=== PATIENT | female | born 1955 | race Caucasian/White ===

== ENCOUNTER 2016-10-15 13:02 | Emergency (ER) | payer MEDICAID ==
[2016-10-15 13:13] VITALS: RESP 15; TEMP 97.9
[2016-10-15] MEDS ORDERED: Oxycodone/Acetaminophen 5/325 mg Tab PO STA (13:43)
--- NOTE | 2016-10-15 13:44 | ED PDOC ---
Arrival/HPI - General Chief Complaint: Lower Extremity Problem/Injury Time Seen by Provider: 10/15/16 13:41 Historian: Patient - History of Present Illness Narrative History of Present Illness (Text): 10/15/16 13:41 61 y/o female, pmh including htn/hyperlipidemia/dm, nkda, c/o bilateral lower extremity leg swelling and rt. knee pain x 3 days. Pt. stated that she has chronic lower leg swelling bilaterally, scheduled for the bilateral lower venuous doppler but has not, started to have rt. knee pain for the past 2-3 days , no fall or trauma, no chest pain or shortness of breath, no night sweat, no dizziness, no other medical or psychological complaints. Past Medical History - Provider Review Nursing Documentation Reviewed: Yes - Cardiac Hx Cardiac Disorders: Yes Hx Hypertension: Yes - Pulmonary Hx Respiratory Disorders: No - Neurological Hx Neurological Disorder: No - HEENT Hx HEENT Disorder: No - Renal Hx Renal Disorder: No - Endocrine/Metabolic Hx Endocrine Disorders: Yes Hx Diabetes Mellitus Type 2: Yes - Hematological/Oncological Hx Blood Disorders: No - Integumentary Hx Dermatological Disorder: No - Musculoskeletal/Rheumatological Hx Musculoskeletal Disorders: Yes Hx Back Pain: Yes - Gastrointestinal Hx Gastrointestinal Disorders: Yes Hx Gastroesophageal Reflux: Yes - Genitourinary/Gynecological Hx Genitourinary Disorders: No - Psychiatric Hx Psychophysiologic Disorder: No Hx Substance Use: No Family/Social History - Physician Review Nursing Documentation Reviewed: Yes Family/Social History: Unknown Family HX Smoking Status: Unknown If Ever Smoked Hx Alcohol Use: No Hx Substance Use: No Allergies/Home Meds Allergies/Adverse Reactions: Allergies No Known Allergies Allergy (Verified 10/15/16 13:14) Home Medications: Home Meds Medication Instructions Recorded Confirmed Allopurinol [Zyloprim] 300 mg PO DAILY 10/15/16 10/15/16 Aspirin [Aspirin Chewable] 81 mg PO DAILY 10/15/16 10/15/16 Atorvastatin [Lipitor] 40 mg PO DAILY 10/15/16 10/15/16 Diclofenac Sodium [Voltaren] 1 appful TOP QID 10/15/16 10/15/16 Docusate [Colace] 100 mg PO DAILY 10/15/16 10/15/16 Insulin Glargine,Hum.rec.anlog 25 units SC DAILY 10/15/16 10/15/16 [Lantus Solostar] Insulin Lispro [humALOG] 0 units SQ AC 10/15/16 10/15/16 Lisinopril/Hydrochlorothiazide 1 tab PO DAILY 10/15/16 10/15/16 [Lisinopril-Hctz 20-25 mg Tab] Metoprolol Succinate XL [Toprol XL] 50 mg PO DAILY 10/15/16 10/15/16 Mv,Min10/Folic Acid/D3/Ala/Lut 1 tab PO DAILY 10/15/16 10/15/16 [Strovite One Caplet] Omeprazole [Omeprazole] 20 mg PO DAILY 10/15/16 10/15/16 Review of Systems - Review of Systems Constitutional: absent: Fatigue, Fevers Eyes: absent: Vision Changes ENT: absent: Hearing Changes Respiratory: absent: SOB, Cough Cardiovascular: Edema. absent: Chest Pain Gastrointestinal: absent: Abdominal Pain, Nausea, Vomiting Musculoskeletal: Arthralgias. absent: Myalgias Skin: absent: Rash, Pruritis Physical Exam Vital Signs Reviewed: Yes Vital Signs Temp Pulse Resp BP Pulse Ox 10/15/16 13:12 97.9 F 71 15 114/67 100 Temperature: Afebrile Blood Pressure: Normal Pulse: Regular Respiratory Rate: Normal Appearance: Positive for: Well-Appearing, Non-Toxic Pain Distress: Moderate Mental Status: Positive for: Alert and Oriented X 3 - Systems Exam Head: Present: Atraumatic, Normocephalic Pupils: Present: PERRL Extroacular Muscles: Present: EOMI Conjunctiva: Present: Normal Mouth: Present: Moist Mucous Membranes Neck: Present: Normal Range of Motion Respiratory/Chest: Present: Clear to Auscultation, Good Air Exchange. No: Respiratory Distress, Accessory Muscle Use Cardiovascular: Present: Regular Rate and Rhythm, Normal S1, S2, Other (1+ pedal edema bilatearally). No: Murmurs Abdomen: Present: Normal Bowel Sounds. No: Tenderness, Distention, Peritoneal Signs Back: Present: Normal Inspection Upper Extremity: Present: Normal Inspection. No: Cyanosis, Edema Lower Extremity: Present: Normal Inspection, Other (Rt. knee: mild swelling with +ttp on the medial aspect of the rt. knee, negative belinda and chester signs, FROM without limitation, sensation intact, motor 5/5, +DPPT pulses, capillary refill< 2 seconds, neurovascular intact. ). No: Edema Neurological: Present: GCS=15, Speech Normal, Motor Func Grossly Intact, Gait Normal, Memory Normal Skin: Present: Warm, Dry, Normal Color. No: Rashes Psychiatric: Present: Alert, Oriented x 3, Normal Insight, Normal Concentration Medical Decision Making ED Course and Treatment: 10/15/16 13:48 -labs -venuous doppler -rt. knee xray -observe and reassess 10/15/16 15:35 -Labs are non-significant except BUN 22/hgb 10.2, IVF ordered. -Bilateral venuous doppler: as per preliminary, no acute DVT -Knee xrays: joint space narrowing on medial compartment -Bilateral lower extremities venuous doppler: as per preliminary report, no acute dvt. -Pain decreased, will discharge home -Discharge home with mobic, michael wrap, ice compression, follow up with your own pmd and orthopedic within 2 days, return to the ER for any new or worsening signs or symptom - Lab Interpretations Lab Results: 10/15/16 14:01 10/15/16 14:01 Lab Results 10/15/16 14:01: Sodium 138, Potassium 4.3, Chloride 102, Carbon Dioxide 27, Anion Gap 13, BUN 22 H, Creatinine 1.0, Est GFR ( Amer) > 60, Est GFR ( Non-Af Amer) 56, Random Glucose 134 H, Calcium 9.3, Total Bilirubin 0.4, AST 26 , ALT 34, Alkaline Phosphatase 97, NT-Pro-B Natriuret Pep 118, Total Protein 7.5 , Albumin 3.9, Globulin 3.5, Albumin/Globulin Ratio 1.1 10/15/16 14:01: WBC 9.1, RBC 3.82, Hgb 10.2 L, Hct 32.0 L, MCV 83.8, MCH 26.7, MCHC 31.9, RDW 15.4 H, Plt Count 303, MPV 8.8, Gran % 56.9, Lymph % (Auto) 34.4 , Sierra % (Auto) 6.5 H, Eos % (Auto) 2.0, Baso % (Auto) 0.2, Gran # 5.19, Lymph # 3.1, Sierra # 0.6, Eos # 0.2, Baso # 0.02 I have reviewed the lab results: Yes Interpretation: Abnormal lab values (hgb 10.2) - RAD Interpretation Radiology Orders: 10/15/16 13:43 KNEE W PATELLA RIGHT 3 VIEW [RAD] Stat DUPLEX LOWER EXTRM VEIN BILAT [US] Stat Knee xrays: joint space narrowing on medial compartment Bilateral lower extremities venuous doppler: as per preliminary report, no acute dvt. 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 Disposition/Present on Arrival - Present on Arrival Any Indicators Present on Arrival: No History of DVT/PE: No History of Uncontrolled Diabetes: No Urinary Catheter: No History of Decub. Ulcer: No History Surgical Site Infection Following: None - Disposition Have Diagnosis and Disposition been Completed?: Yes Diagnosis: Edema, Osteoarthritis Disposition: HOME/ ROUTINE Disposition Time: 14:39 Patient Plan: Discharge Condition: IMPROVED Additional Instructions: -Discharge home with mobic, michael wrap, stocking, ice compression, follow up with your own pmd and orthopedic within 2 days, return to the ER for any new or worsening signs or symptom Prescriptions: Compression Socks, Medium [Futuro Restoring] 1 each MC DAILY #1 each Meloxicam [Mobic] 15 mg PO DAILY PRN #10 tab PRN Reason: Other Referrals: Amber Peñaloza MD [Primary Care Provider] - Follow up with primary Sima Mcduffie MD [Staff Provider] - Follow up with primary Forms: [employer] [facility] [employer])
[2016-10-15 14:06] LABS: BASO # 0.02 K/mm3 (0.0-2.0); BASO % 0.2 % (0.0-3.0); EOS # 0.2 (0.0-0.7); GRAN # 5.19 (1.4-6.5); GRAN % 56.9 % (50.0-68.0); HEMOGLOBIN 10.2 g/dL (12.0-16.0); LYMPH # 3.1 (1.2-3.4); LYMPH % 34.4 % (22.0-35.0); MEAN CELL VOLUME 83.8 fl (80.0-105.0); MEAN CORPUSCULAR HEMOGLOBIN 26.7 pg (25.0-35.0); MEAN CORPUSCULAR HGB CONC 31.9 g/dl (31.0-37.0); MEAN PLATELET VOLUME 8.8 fl (7.0-11.0); MONO # 0.6 (0.1-0.6); MONO % 6.5 % (1.0-6.0); PLATELET COUNT 303 10^3/uL (120.0-450.0); RBC 3.82 10^6/uL (3.5-6.1); RED CELL DISTRIBUTION WIDTH 15.4 % (11.5-14.5); WHITE BLOOD COUNT 9.1 10^3/ul (4.5-11.0)
[2016-10-15 14:20] LABS: ALB/GLOB RATIO 1.1 (1.1-1.8); ALBUMIN 3.9 g/dL (3.0-4.8); ALT/SGPT 34 U/L (7-56); AST/SGOT 26 U/L (15-39); BLOOD UREA NITROGEN 22 mg/dL (7-21); CALCIUM 9.3 mg/dL (8.4-10.5); GFR AFRICAN-AMERICAN > 60; GFR NON-AFRICAN AMERICAN 56
[2016-10-15 14:29] LABS: B-TYPE NATRIURETIC PEPTIDE 118 pg/mL (0-450)
[2016-10-15] MEDS ORDERED: Sodium Chloride 0.9% 1,000 ML IV SCH (14:45)
--- NOTE | 2016-10-15 14:58 | US ---
HISTORY: Leg pain and swelling. Evaluate for DVT PHYSICIAN(S): Lalo John MD. TECHNIQUE: Duplex sonography and color-flow Doppler with graded compression were used to evaluate the deep venous systems of both lower extremities. FINDINGS: The visualized deep venous systems of both lower extremities are sonographically normal and compressible. Normal wave forms and augmentation are seen. There is no sonographic evidence for deep venous thrombosis in the visualized segments of both lower extremities. IMPRESSION: No sonographic evidence for deep venous thrombosis in the visualized segments of both lower extremities.
--- NOTE | 2016-10-15 15:15 | RAD ---
PROCEDURE: Right Knee Radiographs. HISTORY: rt. knee pain COMPARISON: None. FINDINGS: BONES: Normal. No fracture. JOINTS: There is mild joint space narrowing in the medial compartment JOINT EFFUSION: None. OTHER FINDINGS: None. IMPRESSION: There is mild joint space narrowing in the medial compartment
[2016-10-15 15:51] VITALS: BP 111/67; PULSE 68; O2SAT 97
== END 2016-10-15 16:00 | disposition home or self-care (01) ==
LOC: ED 13:02 → MERGE 13:02 → ED 16:00
DX: R60.9 Edema, unspecified (principal); M17.0 Bilateral primary osteoarthritis of knee; I10 Essential (primary) hypertension; E11.9 Type 2 diabetes mellitus without complications
CPT/HCPCS: 73562; 80053; 83880; 85025; 93970; 96360; 99284; J7040

== ENCOUNTER 2017-06-02 15:57 | Emergency (ER) | payer MEDICAID ==
[2017-06-02 15:57] VITALS: BMI 37.0
--- NOTE | 2017-06-02 17:11 | ED PDOC ---
Arrival/HPI - General Time Seen by Provider: 06/02/17 17:10 Historian: Patient - History of Present Illness Narrative History of Present Illness (Text): 06/02/17 17:10 61 y/o female, pmh including htn/hyperlipidemia/dm, gout, nkda, presents to this ED c/o right knee pain since yesterday. Patient denies trauma, fall, weakness, paresthesias, dizziness, sob, cp, palpitation, fever, skin rash, or SOUTH. Time/Duration: Other (since yesterday) Quality: Aching Context: Home Past Medical History - Provider Review Nursing Documentation Reviewed: Yes - Infectious Disease Hx of Infectious Diseases: None - Cardiac Hx Cardiac Disorders: Yes Hx Hypertension: Yes - Pulmonary Hx Respiratory Disorders: No - Neurological Hx Neurological Disorder: No - HEENT Hx HEENT Disorder: No - Renal Hx Renal Disorder: No - Endocrine/Metabolic Hx Endocrine Disorders: Yes Hx Diabetes Mellitus Type 2: Yes - Hematological/Oncological Hx Blood Disorders: No - Integumentary Hx Dermatological Disorder: No - Musculoskeletal/Rheumatological Hx Musculoskeletal Disorders: Yes Hx Back Pain: Yes - Gastrointestinal Hx Gastrointestinal Disorders: Yes Hx Gastroesophageal Reflux: Yes - Genitourinary/Gynecological Hx Genitourinary Disorders: No - Psychiatric Hx Psychophysiologic Disorder: No Hx Substance Use: No - Surgical History Hx Section: Yes - Anesthesia Hx Anesthesia: Yes Hx Anesthesia Reactions: No - Suicidal Assessment Feels Threatened In Home Enviroment: No Family/Social History - Physician Review Nursing Documentation Reviewed: Yes Family/Social History: Other (noncontributory) Smoking Status: Unknown If Ever Smoked Hx Alcohol Use: No Hx Substance Use: No Allergies/Home Meds Allergies/Adverse Reactions: Allergies No Known Allergies Allergy (Verified 09/28/15 19:21) Home Medications: Home Meds Medication Instructions Recorded Confirmed Allopurinol [Zyloprim] 300 mg PO DAILY 09/28/15 09/28/15 Aspirin [Ecotrin] 81 mg PO DAILY 09/28/15 09/28/15 Docusate Sodium [Col-Rite] 100 mg PO DAILY 09/28/15 09/28/15 Insulin Glargine, Recombina 25 unit SC HS 09/28/15 09/28/15 [Lantus] Insulin Lispro [Humalog] 10 unit SQ DAILY 09/28/15 09/28/15 Lisinopril/Hydrochlorothiazide 1 tab PO DAILY 09/28/15 09/28/15 [Lisinopril-Hydrochlorothiazide 25 mg-20 mg] Metformin HCl [Metformin HCl ER] 500 mg PO BID 09/28/15 09/28/15 Metoprolol Succinate [Toprol XL] 50 mg PO DAILY 09/28/15 09/28/15 Multivitamin [Daily Yuliana] 1 tab PO DAILY 09/28/15 09/28/15 Omeprazole 20 mg PO DAILY 09/28/15 09/28/15 Allopurinol [Zyloprim] 300 mg PO DAILY 10/15/16 10/15/16 Aspirin [Aspirin Chewable] 81 mg PO DAILY 10/15/16 10/15/16 Atorvastatin [Lipitor] 40 mg PO DAILY 10/15/16 10/15/16 Diclofenac Sodium [Voltaren] 1 appful TOP QID 10/15/16 10/15/16 Docusate [Colace] 100 mg PO DAILY 10/15/16 10/15/16 Insulin Glargine,Hum.rec.anlog 25 units SC DAILY 10/15/16 10/15/16 [Lantus Solostar] Insulin Lispro [humALOG] 0 units SQ AC 10/15/16 10/15/16 Lisinopril/Hydrochlorothiazide 1 tab PO DAILY 10/15/16 10/15/16 [Lisinopril-Hctz 20-25 mg Tab] Metoprolol Succinate XL [Toprol XL] 50 mg PO DAILY 10/15/16 10/15/16 Mv,Min10/Folic Acid/D3/Ala/Lut 1 tab PO DAILY 10/15/16 10/15/16 [Strovite One Caplet] Omeprazole [Omeprazole] 20 mg PO DAILY 10/15/16 10/15/16 Review of Systems - Review of Systems Constitutional: Normal. absent: Fatigue, Weight Change, Fevers, Night Sweats Eyes: Normal ENT: Normal Respiratory: Normal. absent: SOB, Cough Cardiovascular: Normal. absent: Chest Pain, Palpitations Gastrointestinal: Normal. absent: Abdominal Pain, Nausea, Vomiting Genitourinary Female: Normal. absent: Dysuria, Frequency, Hematuria Musculoskeletal: Other (right knee pain) Skin: Normal. absent: Rash Neurological: Normal. absent: Headache, Dizziness, Focal Weakness, Gait Changes , Speech Changes, Facial Droop, Disequilibrium Endocrine: Normal Hemo/Lymphatic: Normal Psychiatric: Normal Physical Exam Vital Signs Temp Pulse Resp BP Pulse Ox 06/02/17 18:00 97.8 F 80 18 107/65 94 L Temperature: Afebrile Blood Pressure: Normal Pulse: Regular Respiratory Rate: Normal Appearance: Positive for: Well-Appearing, Non-Toxic, Comfortable Pain Distress: None Mental Status: Positive for: Alert and Oriented X 3 - Systems Exam Head: Present: Atraumatic, Normocephalic Pupils: Present: PERRL Extroacular Muscles: Present: EOMI Conjunctiva: Present: Normal Mouth: Present: Moist Mucous Membranes Neck: Present: Normal Range of Motion Respiratory/Chest: Present: Clear to Auscultation, Good Air Exchange. No: Respiratory Distress, Accessory Muscle Use Cardiovascular: Present: Regular Rate and Rhythm, Normal S1, S2. No: Murmurs Abdomen: Present: Normal Bowel Sounds. No: Tenderness, Distention, Peritoneal Signs Back: Present: Normal Inspection Upper Extremity: Present: Normal Inspection. No: Cyanosis, Edema Lower Extremity: Present: Normal Inspection, NORMAL PULSES, Tenderness (mild right knee joint tenderness. Knee is able to flex for at least 90 degrees), Temperature Abnormalties (right knee joint feels mild warmth to touch), Neurovascularly Intact, Capillary Refill < 2 s. No: Edema, CALF TENDERNESS, Cyanosis, Normal ROM (decreased due to pain), Chad's Sign, Erythema, Deformity Neurological: Present: GCS=15, CN II-XII Intact, Speech Normal, Motor Func Grossly Intact, Normal Sensory Function, Normal Cerebellar Funct, Gait Normal Skin: Present: Warm, Dry, Normal Color. No: Rashes Psychiatric: Present: Alert, Oriented x 3, Normal Insight, Normal Concentration Medical Decision Making ED Course and Treatment: 06/02/17 19:51 Patient feels better. Re-evaluation Time: 19:51 Reassessment Condition: Re-examined, Improved - RAD Interpretation Narrative RAD Interpretations (Text): 06/02/17 19:51 Knee x-rays: DJD. No Fx Radiology Orders: 06/02/17 17:50 KNEE W PATELLA RIGHT 3 VIEW [RAD] Stat - Medication Orders Current Medication Orders: Colchicine (Colocrys) 0.6 mg PO STAT STA Stop: 06/02/17 19:51 Discontinued Medications Colchicine (Colocrys) 1.2 mg PO STAT STA Stop: 06/02/17 17:53 Last Admin: 06/02/17 19:38 Dose: 1.2 mg Ketorolac Tromethamine (Toradol) 30 mg IM STAT STA Stop: 06/02/17 17:52 Last Admin: 06/02/17 18:25 Dose: 30 mg MAR Pain Assessment Document 06/02/17 18:25 [facility] (Rec: 06/02/17 18:[id number]) Pain Reassessment Is this a pain reassessment? No Sleep Is patient sleeping during reassessment? No Presence of Pain Presence of Pain Yes Pain Scale Used Pain Scale Used Numeric Location Left, Right or Bilateral Right Pain Location Body Site Knee Description Description Constant Intensity of Pain at present 8 Pain Behavior Facial Grimacing Aggravating Factors Changing Position Alleviating Factors/Management Position Change Techniques Alleviating Factors Medication IM Administration Charges Document 06/02/17 18:25 [facility] (Rec: 06/02/17 18:[id number]) Injection Site MAR Injection Site Right Vastus Lateralis Charges for Administration # of IM Administrations 1 Disposition/Present on Arrival - Present on Arrival Any Indicators Present on Arrival: No History of DVT/PE: No History of Uncontrolled Diabetes: No Urinary Catheter: No History Surgical Site Infection Following: None - Disposition Have Diagnosis and Disposition been Completed?: Yes Diagnosis: Exacerbation of gout, Knee pain, right Disposition: HOME/ ROUTINE Disposition Time: 19:52 Patient Plan: Discharge Condition: IMPROVED Discharge Instructions (ExitCare): Lifestyle Changes to Manage Gout Additional Instructions: Call private doctor for follow up visit in 1-2 days. you should also call Import Manager. Return to emergency if symptoms worsen. Remove michael bandage when you are laying down, or sleeping. Apply ice pack and continue using your cane. Prescriptions: oxyCODONE/Acetaminophen [Percocet 5/325 mg Tab] 1 ea PO Q6 PRN #5 tab PRN Reason: Pain, Severe (8-10) Referrals: Amber Peñaloza MD [Primary Care Provider] - Follow up with primary
[2017-06-02 18:00] VITALS: BP 107/65; PULSE 80; RESP 18; TEMP 97.8; O2SAT 94
--- NOTE | 2017-06-03 08:42 | RAD ---
PROCEDURE: Right Knee Radiographs. HISTORY: Leg and knee Pain. No history of recent/ related trauma provided COMPARISON: None. FINDINGS: BONES: Normal. No fracture. JOINTS: Multi compartment degenerative changes, moderate. JOINT EFFUSION: None. OTHER FINDINGS: None. IMPRESSION: Moderate tricompartmental degenerative change. No acute findings related to/accounting for the clinical presentation. Concordant results with the preliminary interpretation rendered by the emergency department physician procedure.
== END 2017-06-02 20:04 | disposition home or self-care (01) ==
LOC: ED 15:57
DX: M10.9 Gout, unspecified (principal); M25.561 Pain in right knee; E11.9 Type 2 diabetes mellitus without complications; E78.5 Hyperlipidemia, unspecified; I10 Essential (primary) hypertension
CPT/HCPCS: 73562; 96372; 99284; J1885